=== PATIENT | male | born 1950 | race Caucasian/White ===

== ENCOUNTER 2017-05-18 16:43 | Inpatient (IN) | payer OTHER ==
[~2017-05-18] VITALS: Ht 195.6 cm; Wt 111.8 kg
--- NOTE | ~2017-05-18 | HC ---
[facility] [place] [address] CONSULTATION Name: DWYERELIF Angel Room #: 430-P [facility] IN M.R.#: [id number] Admission: 05/18/17 Attend Phys: Neftali Olivarez DO Discharge: 05/22/17 Date of : 48 Report #: [id number] THIS REPORT FOR: //name// CC: Neftali Pan HISTORY OF PRESENT ILLNESS: This patient of Dr. Pan was admitted emergently with shaking chills. He has known history of prior splenectomy and treatment for CLL. He also receives monthly IgG infusions from Dr. Pan which was due on 05/19/2017. An IgG level a week ago was only 499. He also was febrile though did not take his temperature and experienced chest pressure and pain. 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 He had a previous Leukeran, prednisone, fludarabine, Campath, Rituxan and for his CLL and was last treated in 08/2009. FAMILY HISTORY: Not pertinent. SOCIAL HISTORY: He is a never smoker. MEDICATIONS: As listed on the MFR. ALLERGIES: UNKNOWN. REVIEW OF SYSTEMS: Negative for any recent purulent sputum production. He has not noticed any recurrent complaints of sinusitis, which has been a chronic issue. Denies any hemoptysis. He has no new palpable masses or pain. PHYSICAL EXAMINATION: GENERAL: Shows him to be alert, reading an IPad. HEENT: Shows him with prior evidence of his radiation therapy and tongue surgery on the right. His HENT otherwise is normocephalic. CHEST: Revealed no rales. CARDIOVASCULAR: Normal S1, S2. ABDOMEN: Obese. NEUROLOGIC: No focal localized signs. PSYCHIATRIC: Not agitated or confused. SKIN: Normal turgor. EXTREMITIES: No clubbing, cyanosis or edema. LYMPHATICS: Revealed no palpable supraclavicular or axillary adenopathy. [facility] [address] [place] [address] CONSULTATION Name: ELIF DWYER Room #: 430-P [facility] IN M.R.#: [id number] Admission: 05/18/17 Attend Phys: Neftali Olivarez DO Discharge: 05/22/17 Date of : 48 Report #: [id number] ASSESSMENT: Rigors in a previous chemotherapy patient with a chronic lymphocytic leukemia and ongoing hypogammaglobulinemia with prior splenectomy. PLAN: I try to arrange that he receive his IV IgG while hospitalized here currently at [facility]. He has been cultured and already placed on empiric antibiotic coverage. Awaiting results of blood cultures. Full and further recommendations will be forthcoming. Thanks again for allowing us to see him in consultation and allowing us to participate in his care. <ELECTRONICALLY SIGNED> By: Fanta Cuello MD 05/23/17 0906 1634 1813 MD cori Mark
--- NOTE | ~2017-05-18 | 2DMMODE ---
[facility] [address] [place] [address] 2 D/M-MODE ECHOCARDIOGRAM Name: ELIF DWYER Room #: 430-P [facility] IN ..#: [id number] Admission: 05/18/17 Attend Phys: Neftali Olivarez, Discharge: Date of : 48 Date of Service: 05/19/17 1526 Report #: [id number] THIS REPORT FOR: //name// APPROVED REPORT Study performed: 05/19/2017 13:38:54 EXAM: Comprehensive 2D, Doppler, and color-flow Echocardiogram Patient Location: Echo lab Room #: 430 Status: routine BSA: 2.44 HR: 90 bpm BP: 87/56 mmHg Rhythm: NSR Other Information Study Quality: Fair Technically limited study due to body habitus. Indications Bacteremia, murmur. Hx: SVT, ablation, PE 2D Dimensions RVDd: 34.04 mm LVEF(%): 54.46 (>50%) IVSd: 12.00 (7-11mm) LVOT Diam: 26.79 (18-24mm) LVDd: 43.71 mm PWd: 11.00 (7-11mm) Ascending Ao: 37.78 (22-36mm) LVDs: 31.47 (25-40mm) Aortic Root: 43.89 mm Suarez's LVEF: 54.46 % Volumes Left Atrial Volume (Systole) Single Plane 4CH: 42.47 mL Single Plane 2CH: 65.81 mL LA ESV Index: 23.00 mL/m2 Aortic Valve AoV Peak Reynold.: 1.62 m/s AO Peak Gr.: 10.56 mmHg LVOT Max P.59 mmHg LVOT Max V: 1.38 m/s JESS Vmax: 4.78 cm2 Mitral Valve [facility] [place] [address] 2 D/M-MODE ECHOCARDIOGRAM Name: ELIF DWYER Room #: 430-P [facility] IN .R.#: [id number] Admission: 05/18/17 Attend Phys: Neftali Olivarez, Discharge: Date of : 48 Date of Service: 05/19/17 1526 Report #: [id number] E/A Ratio: 0.7 MV Decel. Time: 237.04 ms MV E Max Reynold.: 0.91 m/s MV A Reynold.: 1.26 m/s MV PHT: 68.74 ms IVRT: 76.12 ms Pulmonary Valve PV Peak Reynold.: 0.84 m/s PV Peak Gr.: 2.79 mmHg Left Ventricle The left ventricle is normal size. There is normal LV segmental wall motion. Mild basal septal hypertrophy is present. Left ventricular systolic function is normal. LVEF is 60%. Mild diastolic dysfunction is present (impaired relaxation pattern). Right Ventricle The right ventricle is normal size. The right ventricular systolic function is normal. Atria The left atrium size is normal. The right atrium size is normal. Aortic Valve The aortic valve is difficult to visualize. Appears mildly calcified. No aortic regurgitation is present. There is no aortic valvular stenosis. Mitral Valve Mitral valve is not well visualized. Mild mitral annular calcification. Trace mitral regurgitation. No evidence of mitral valve stenosis. Tricuspid Valve The tricuspid valve appears grossly normal. There is no tricuspid valve regurgitation detected. Unable to assess PA pressure. Pulmonic Valve Pulmonic valve is not well visualized. Great Vessels Aortic root is dilated at 4.4cm. The ascending aorta is at the upper limits of normal. IVC is not well [place] [address] 2 D/M-MODE ECHOCARDIOGRAM Name: ELIF DWYER Room #: 430-P [facility] IN ..#: [id number] Admission: 05/18/17 Attend Phys: Neftali Olivarez, Discharge: Date of : 48 Date of Service: 05/19/17 1526 Report #: [id number] There is no pericardial effusion noted. <Conclusion> The left ventricle is normal size. LVEF is 60%. The aortic valve is difficult to visualize. Appears mildly calcified. No aortic regurgitation is present. There is no aortic valvular stenosis. Mitral valve is not well visualized. Mild mitral annular calcification. Trace mitral regurgitation. The tricuspid valve appears grossly normal. There is no tricuspid valve regurgitation detected. Unable to assess PA pressure. Aortic root is dilated at 4.4cm. The ascending aorta is at the upper limits of normal. There is no pericardial effusion noted. <ELECTRONICALLY SIGNED> By: Venkat Benz MD 05/19/17 1526 1526 1526 Venkat Benz MD /INF
--- NOTE | ~2017-05-18 | HC ---
[facility] [place] [place] [address] CONSULTATION Name: DWYERELIF Angel Room #: 430-P [facility] IN ..#: [id number] Admission: 05/18/17 Attend Phys: Neftali Olivarez DO Discharge: 05/22/17 Date of : 48 Report #: [id number] THIS REPORT FOR: //name// CC: Neftali Pan DATE OF SERVICE: 05/19/2017 REASON FOR CONSULTATION: I was asked to evaluate concerning fever and bacteremia. HISTORY OF PRESENT ILLNESS: The patient was a 66-year-old with known history of CLL and cancer of the tongue, which has been in remission. 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 He also has immunodeficiency from his CLL and receives monthly immunoglobulin injections. Yesterday, he developed rigors and temperature up to 103 degrees. He has had recurring episodes of chills since presentation. He brought himself into the Emergency Room where blood cultures were drawn. He has grown streptococci from both cultures. REVIEW OF SYSTEMS: Notes no headache. He has mild discomfort in his jaw and neck from previous diagnosis of osteonecrosis. He has been undergoing dental evaluation and is scheduled to have teeth pulled after his initial HBO therapy. He has occasional dysphagia and coughing after eating or drinking. Overall, no chest pain or cough or sputum production has been noted other than he had some substernal chest discomfort when he had his rigors yesterday. No nausea, vomiting or diarrhea. No abdominal pain. No flank pain. No dysuria or frequency. His last stool was 3 days ago. He does take narcotics for his dental pain. He has traveled to the [facility] on a cruise 3 months ago. He stayed on the ship. No illness while he was in travel. ALLERGIES: None known. MEDICATIONS: As noted on his MAR, which were reviewed. Now on Zosyn and Levaquin. PAST MEDICAL HISTORY: CA of the tongue, CLL in remission, DVT and PE, splenectomy, atrial tachycardia status post ablation, tonsillectomy, soft palate surgery, cataract surgery, cryoglobulinemia, immunodeficiency with hypogammaglobulinemia, previous Port-A-Cath MRSA infection in 2015. Postherpetic neuralgia, right chest; peripheral neuropathy following chemotherapy. FAMILY HISTORY: Noncontributory. [facility] [address] [facility] [place] [address] CONSULTATION Name: ELIF DWYER Angel Room #: 430-P [facility] IN M.R.#: [id number] Admission: 05/18/17 Attend Phys: Neftali Olivarez DO Discharge: 05/22/17 Date of : 48 Report #: [id number] SOCIAL HISTORY: Nonsmoker, no significant alcohol intake. No HIV risks. PHYSICAL EXAMINATION: VITAL SIGNS: Afebrile and hemodynamically stable. Earlier this morning, his blood pressure dropped in the 80s systolic. GENERAL: He was alert and cooperative. He was mildly dysarthric, which was stable for him. SKIN: Unremarkable. LYMPHATIC: Unremarkable. EYES: Unremarkable. MOUTH: Previous uvuloplasty. He had mild tenderness in the right lower mandibular ridge. No purulent drainage. He had fullness in his submandibular region. Mild edema. No fluctuance identified. No tenderness. NECK: Supple, otherwise. LUNGS: Clear anteriorly with a few crackles in the left posterior chest. HEART: Regular with a 2/6 systolic murmur heard at left sternal border. ABDOMEN: Soft, mild distention, no hepatosplenomegaly or mass appreciated. EXTERNAL GENITALIA: Unremarkable. EXTREMITIES: Unremarkable. NEUROLOGIC STATUS: Mild decreased sensation in his toes bilaterally. LABORATORY STUDIES: Urinalysis unremarkable. Sodium 141, potassium 4, bicarbonate 26, creatinine 1.5. Liver function tests normal. Hemoglobin 12.4, platelet count 251,000, WBC 30.7. Chest x-ray, increased bilateral hemidiaphragms and associated atelectasis. CT scan of the abdomen asplenic, no abscess identified. 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 Now with sepsis related to streptococcal bacteremia. He has associated leukocytosis and acute renal failure. Source is yet to be identified. I am concerned about head and neck source and possibly endocarditis involvement. RECOMMENDATION: Repeat blood cultures. Check echocardiogram, CT scan of the head and neck, check immunoglobulin level and give immunoglobulin. Check HIV level and continue antibiotic coverage with vancomycin and Zosyn. ADDENDUM DATE OF CONSULTATION: 05/19/2017 <ELECTRONICALLY SIGNED> By: Parmjit Ivy MD 10/06/17 1446 1318 1345 Parmjit Ivy MD /nt
--- NOTE | ~2017-05-18 | HC ---
[facility] [address] [place] [address] CONSULTATION Name: ELIF DWYER Room #: 430-P [facility] IN M.R.#: [id number] Admission: 05/18/17 Attend Phys: Neftali Olivarez DO Discharge: 05/22/17 Date of : 48 Report #: [id number] THIS REPORT FOR: //name// CC: Neftali Pan DATE OF SERVICE: 05/19/2017 ADDENDUM DATE OF CONSULTATION: 05/19/2017 <ELECTRONICALLY SIGNED> By: Parmjit Ivy MD 09/19/17 0856 1130 1224 aPrmjit Ivy MD /nt
--- NOTE | ~2017-05-18 | EKG ---
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
[~2017-05-18 16:43] MED LIST: BACTRIM DS TAB1 EACH PO; CENTRUM SILVER1 EAC2 PO; COUMADIN 5 MG TA5 M1 PO; DEXAMETHASONE 22 M1 PO; ENOXAPARIN30 MG/0.1 SUBQ; FENTANYL 1100 MCG/HR TRANSDERM; FISH OIL 1,001000 M2 PO; FISHOIL; HYDROCODONE-AP1 EAC6 PO; JANTOVEN2 MG PO; LOPRESSOR; LOVENOX; MSL20MG/ML PO; MULTIVITAMINS1 EAC7 PO; NEURONTIN100 MG PO; NORTRIPTYLINE H10 M2 PO; PHENASEPTIC1 BOT MUCOUS MEM; PRILOSEC 10MG C10 MG; PRIVIGEN50 ML IV; TYLENOL325 MG PO; ZOCOR 10 MG TAB10 MG PO; [UNRECOGNIZED DRUG - OTHER]; [UNRECOGNIZED DRUG - OTHER] SPRAY
[2017-05-18 16:45] VITALS: BP 130/81
[2017-05-18] MEDS ORDERED: DILAUDID 2 MG TA2 MG PO (16:52)
[2017-05-18 17:06] LABS: URINE BILIRUBIN NEGATIVE (Negative); URINE BLOOD 2+ (Negative); URINE CLARITY CLEAR; URINE COLOR YELLOW; URINE GLUCOSE-RANDOM* NEGATIVE (Negative); URINE KETONES NEGATIVE (Negative); URINE LEUKOCYTES-REFLEX NEGATIVE (Negative); URINE NITRITE-REFLEX NEGATIVE (Negative); URINE PROTEIN (DIPSTICK) NEGATIVE (Negative)
[2017-05-18 17:09] LABS: HEMATOCRIT 40.6 % (42.0-52.0); HEMOGLOBIN 13.5 gm/dL (14.0-18.0); MCH 29.7 pg (26.0-34.0); MCHC 33.2 g/dL (28.0-37.0); MCV 89.5 fL (80.0-100.0); PLATELET COUNT 269 thou/uL (150-400); RBC 4.54 mil/uL (4.50-6.00); RDW 14.8 % (10.5-14.5); WBC 21.3 thou/uL (4.0-11.0)
[2017-05-18 17:12] LABS: ANION GAP 10 mmol/L (7-16); BUN 24 mg/dL (7-18); CALCIUM 9.8 mg/dL (8.5-10.1); CHLORIDE 105 mmol/L (98-107); CO2 26 mmol/L (21-32); CREATININE 1.3 mg/dL (0.7-1.3); GLUCOSE 100 mg/dL (74-106); SODIUM 141 mmol/L (136-145)
[2017-05-18 17:16] LABS: BACTERIA-REFLEX 1-9 Few /HPF (None Seen); CASTS None Seen /LPF (None Seen); CRYSTALS None Seen /LPF (None Seen); SQUAMOUS None Seen /LPF (0-3); URINE RBC 3-10 Few /HPF (0-2); URINE WBC-REFLEX None Seen /HPF (0-5)
[2017-05-18 17:20] LABS: TROPONIN-I < 0.04 ng/mL (<0.06)
[2017-05-18 17:32] LABS: ABSOLUTE NEUTROPHILS 20.4 thou/uL (1.4-8.2); ANISOCYTOSIS 1+
[2017-05-18 17:56] LABS: INR 2.3; PROTIME 23.6 Seconds (9.3-11.4)
[2017-05-18 18:44] LABS: ALBUMIN 3.6 g/dL (3.4-5.0); DIRECT BILIRUBIN 0.1 mg/dL (<0.1-0.3); TOTAL BILIRUBIN 0.3 mg/dL (<0.1-1.0); TOTAL PROTEIN 6.7 g/dL (6.4-8.2)
[2017-05-18 21:09] VITALS: BP 105/66
[2017-05-18 21:30] VITALS: BP 81/57
[2017-05-19 04:14] VITALS: BP 90/54
[2017-05-19 05:36] LABS: HEMATOCRIT 37.5 % (42.0-52.0); HEMOGLOBIN 12.4 gm/dL (14.0-18.0); MCV 90.9 fL (80.0-100.0); RBC 4.12 mil/uL (4.50-6.00); RDW 14.5 % (10.5-14.5); WBC 30.7 thou/uL (4.0-11.0)
[2017-05-19 05:43] LABS: INR 2.6; PROTIME 26.1 Seconds (9.3-11.4)
[2017-05-19 05:47] LABS: CALCIUM 8.7 mg/dL (8.5-10.1); CREATININE 1.5 mg/dL (0.7-1.3); POTASSIUM 3.5 mmol/L (3.5-5.1)
[2017-05-19 07:55] VITALS: BP 87/56
[2017-05-19 16:01] VITALS: BP 116/62
[2017-05-19 20:00] VITALS: BP 129/79
[2017-05-19] MEDS ORDERED: NORTRIPTYLINE H50 M3 PO (23:21)
[2017-05-20 04:30] VITALS: BP 130/89
[2017-05-20 06:43] LABS: HEMATOCRIT 38.2 % (42.0-52.0); HEMOGLOBIN 12.5 gm/dL (14.0-18.0); MCH 29.5 pg (26.0-34.0); MCHC 32.8 g/dL (28.0-37.0); MCV 89.7 fL (80.0-100.0); PLATELET COUNT 243 thou/uL (150-400); RBC 4.25 mil/uL (4.50-6.00); WBC 27.6 thou/uL (4.0-11.0)
[2017-05-20 06:53] LABS: CALCIUM 9.5 mg/dL (8.5-10.1); CREATININE 1.1 mg/dL (0.7-1.3); POTASSIUM 3.9 mmol/L (3.5-5.1)
[2017-05-20 07:19] VITALS: BP 143/101
[2017-05-20 07:31] LABS: ABSOLUTE NEUTROPHILS 25.9 thou/uL (1.4-8.2)
[2017-05-20 09:10] LABS: HIV ANTIBODY Non Reactive (Non Reactive)
[2017-05-20 15:30] VITALS: BP 147/103
[2017-05-20 20:56] VITALS: BP 164/103
[2017-05-21 05:20] VITALS: BP 129/11
[2017-05-21 05:34] VITALS: BP 129/77
[2017-05-21 06:03] LABS: ABSOLUTE NEUTROPHILS 16.9 thou/uL (1.4-8.2); BASOPHILS 0.7 % (0.0-2.0); EOSINOPHILS 1.2 % (0.0-3.0); HEMATOCRIT 35.9 % (42.0-52.0); LYMPHOCYTES 7.3 % (24.0-44.0); MCH 29.8 pg (26.0-34.0); MCHC 33.4 g/dL (28.0-37.0); MCV 89.4 fL (80.0-100.0); MONOCYTES 3.6 % (1.0-8.0); PLATELET COUNT 234 thou/uL (150-400); POLYS 87.2 % (36.0-66.0); RBC 4.02 mil/uL (4.50-6.00); RDW 15.3 % (10.5-14.5); WBC 19.4 thou/uL (4.0-11.0)
[2017-05-21 06:15] LABS: CALCIUM 9.1 mg/dL (8.5-10.1); CREATININE 1.1 mg/dL (0.7-1.3); POTASSIUM 3.9 mmol/L (3.5-5.1)
[2017-05-21 07:48] VITALS: BP 156/87
[2017-05-21 20:00] VITALS: BP 153/94
[2017-05-22 04:04] VITALS: BP 108/67
[2017-05-22 06:57] LABS: ABSOLUTE NEUTROPHILS 8.6 thou/uL (1.4-8.2); BASOPHILS 1.2 % (0.0-2.0); HEMATOCRIT 38.3 % (42.0-52.0); HEMOGLOBIN 12.8 gm/dL (14.0-18.0); LYMPHOCYTES 15.8 % (24.0-44.0); MCH 29.9 pg (26.0-34.0); MCHC 33.5 g/dL (28.0-37.0); MCV 89.1 fL (80.0-100.0); MONOCYTES 5.5 % (1.0-8.0); POLYS 74.5 % (36.0-66.0); RBC 4.29 mil/uL (4.50-6.00); WBC 11.5 thou/uL (4.0-11.0)
[2017-05-22 07:06] LABS: CALCIUM 9.2 mg/dL (8.5-10.1); CREATININE 1.1 mg/dL (0.7-1.3); POTASSIUM 3.7 mmol/L (3.5-5.1)
[2017-05-22 07:20] VITALS: BP 154/95
[2017-05-22 08:03] LABS: PLATELET COUNT 257 thou/uL (150-400)
[2017-05-22 08:04] LABS: LARGE PLATELETS RARE
[2017-05-22 11:41] VITALS: BP 154/95
[2017-05-22] MEDS ORDERED: AUGMENTIN 875-1 EACH PO (15:47)
== END 2017-05-22 16:20 | disposition home or self-care (01) | DRG 871 ==
LOC: ER 16:43 → EROBS 20:11 → 4E 20:11 → ENTRNSPT 05-22 16:09 → 4E 05-22 16:20
PROVIDERS: Emergency Medicine; Family Medicine; Nurse Practitioner Family; Specialist
DX: A40.3 Sepsis due to Streptococcus pneumoniae (principal); J18.9 Pneumonia, unspecified organism; C91.10 Chronic lymphocytic leukemia of B-cell type not having achieved remission; I47.1 Supraventricular tachycardia; G62.9 Polyneuropathy, unspecified; E78.5 Hyperlipidemia, unspecified; I10 Essential (primary) hypertension; F32.9 Major depressive disorder, single episode, unspecified; G47.00 Insomnia, unspecified; M27.2 Inflammatory conditions of jaws; Z86.711 Personal history of pulmonary embolism; Z86.718 Personal history of other venous thrombosis and embolism; Z90.49 Acquired absence of other specified parts of digestive tract; Z93.1 Gastrostomy status; Z90.81 Acquired absence of spleen; Z85.810 Personal history of malignant neoplasm of tongue
CPT/HCPCS: 10183

== ENCOUNTER → 2018-11-04 | Outpatient (CLI) | payer OTHER ==
[~2018-11-04] VITALS: Ht 195.6 cm; Wt 117.9 kg
[~2018-11-04] MED LIST changes: +AUGMENTIN 875-1 EACH PO; +DILAUDID 2 MG TA2 MG PO; +IMPRIMIS OPHTHALMIC; +NEURONTIN600 MG PO; +NORTRIPTYLINE H50 M3 PO
--- NOTE | ~2018-11-04 | P ---
[facility] [place] [address] PROCEDURE REPORT Name: ELIF DWYER Room #: REG [facility]#: [id number] Admission: 11/04/18 Attend Phys: Geovanni You Discharge: Date of : 48 Report #: [id number] THIS REPORT FOR: //name// CC: Geovanni Ni MD DATE OF SERVICE: 11/04/2018 PROCEDURE PERFORMED: Colonoscopy with polypectomies. HISTORY OF PRESENT ILLNESS: The patient is a 68-year-old male who presents today for routine screening colonoscopy. Denies any symptoms. No family history of colon cancer. Plan is for colonoscopy. DESCRIPTION OF PROCEDURE: The risks and benefits of the procedure were explained to the patient, those risks including but not limited to bleeding, perforation, and the risk of sedation. He understood these risks and gave informed consent. Sedation was given using propofol per anesthesia. Next, a digital rectal exam was initially performed, which was normal. Next, using a standard Olympus colonoscope, the scope was placed in the patient's anus and advanced under direct vision to the cecum. The overall prep was excellent. The cecum and ileocecal valve were normal in appearance. The ascending colon was normal. In the transverse colon, a 6-mm sessile polyp was noted. This was removed by snare cautery. In the descending colon, a 7-mm sessile polyp also noted and removed by snare cautery. A few scattered diverticula were noted in the sigmoid colon, no evidence of inflammation, otherwise normal. The rectal mucosa was normal. On retroflexion, small nonbleeding internal hemorrhoids were noted. The scope was then withdrawn and the procedure terminated. The patient tolerated the procedure well. IMPRESSION: 1. Two small colonic polyps. 2. Sigmoid diverticulosis. 3. Internal hemorrhoids. 4. Otherwise, normal colonoscopy. RECOMMENDATIONS: 1. Await biopsy results. 2. Repeat colonoscopy in 5 years. [facility] [address] [place] [address] PROCEDURE REPORT Name: ELIF DWYER Room #: REG [facility]#: [id number] Admission: 11/04/18 Attend Phys: Geovanni You Discharge: Date of : 48 Report #: [id number] Thank you for allowing me to participate in his care. By: 1206 0324 Geovanni Weber MD /nt
--- NOTE | 2018-11-05 17:06 | PATH ---
[facility] [address] [address] PATHOLOGY RPT PROCEDURE Name: YULIYAJASPER Ortiz Room #: REG SALTY Wallace.#: [id number] Admission: 11/04/18 Date of : 48 Discharge: Report #: [id number] Path Case #: [id number] [facility] Accession Number: [id number] . 01 Material submitted: . PART A: colon - POLYP AT TRANSVERSE COLON. Modifiers: transverse PART B: colon - POLYP AT DESCENDING COLON. Modifiers: descending . 01 Clinical history: . Pre-OP DX: Screening Post-OP DX: Colon polyps, diverticulosis . 02 Diagnosis: A. Polyp, at transverse colon, endoscopic biopsy: - Tubular adenoma. - Negative for high-grade dysplasia. . B. Polyp, at descending colon, endoscopic biopsy: - Tubular adenoma. - Negative for high-grade dysplasia. (IUV:pit; 11/05/2018) QTP/11/05/2018 . 02 Electronically signed: . Deann Noyola MD, Pathologist NPI- [id number] . 01 Gross description: . A. Received in formalin labeled "Jasper Badillo, polyp at transverse colon," is a 0.9 x 0.5 x 0.5 cm polypoid piece of sutton soft tissue. The margin is inked and the tissue is sectioned perpendicular to the margin and submitted entirely in cassettes A1 and A2. . B. Received in formalin labeled "Jasper Badillo, polyp at descending colon," is a 0.6 x 0.5 x 0.5 cm polypoid piece of sutton soft tissue. The margin is inked and the tissue is sectioned perpendicular to the margin and submitted entirely in cassette B1. (TSD; 11/04/2018) TOB/TOB . 02 Pathologist provided ICD-10: D12.3, D12.4 . 02 CPT . 487126, 192013 Specimen Comment: A courtesy copy of this report has been sent to Specimen Comment: [phone], [place] [address] PATHOLOGY RPT PROCEDURE Name: YULIYAJASPER Ortiz Room #: REG SALTY Page#: [id number] Admission: 11/04/18 Date of : 48 Discharge: Report #: [id number] Path Case #: [id number] Specimen Comment: Report sent to / DR TAVERAS Performed at: [address] [facility], [place], [place] [id number] MD Jad Lara MD Phone: [phone] Performed at: [address] [id number] MD Deann Noyola MD Phone: [phone]
== END | disposition home or self-care (01) ==
LOC: GI 09:37
DX: Z12.11 Encounter for screening for malignant neoplasm of colon (principal); D12.3 Benign neoplasm of transverse colon; D12.4 Benign neoplasm of descending colon; K57.30 Diverticulosis of large intestine without perforation or abscess without bleeding; K64.8 Other hemorrhoids; E78.5 Hyperlipidemia, unspecified; Z85.810 Personal history of malignant neoplasm of tongue; Z85.6 Personal history of leukemia; Z86.711 Personal history of pulmonary embolism; Z79.01 Long term (current) use of anticoagulants; Z98.41 Cataract extraction status, right eye; Z98.42 Cataract extraction status, left eye; Z98.890 Other specified postprocedural states; Z79.899 Other long term (current) drug therapy; Z87.01 Personal history of pneumonia (recurrent)
CPT/HCPCS: 62110; 62900

== ENCOUNTER → 2020-02-11 | Outpatient (CLI) | payer OTHER | LOC: LAB 11:49 | PROVIDERS: ATTEND Anesthesiology | DX: Z01.812 Encounter for preprocedural laboratory examination (principal); Z20.828 Contact with and (suspected) exposure to other viral communicable diseases ==